=== PATIENT | male | born 1980 | race Caucasian/White ===

== ENCOUNTER 2017-03-08 10:38 | Emergency (ER) | payer MEDICAID, OTHER ==
[~2017-03-08] VITALS: Ht 167.6 cm; Wt 133.4 kg
[~2017-03-08 10:38] MED LIST: IBUP-1542 PO
[2017-03-08 10:41] VITALS: Ht 167.6 cm; Wt 133.4 kg
[2017-03-08] MEDS ORDERED: IBUPROFEN 800 MG TAB PO ONE (11:00)
--- NOTE | 2017-03-08 11:39 | RADRPT ---
PROCEDURE: XR Chest. CLINICAL INDICATION: Chest pain TECHNIQUE: Single portable view of the chest was obtained. COMPARISON: None. FINDINGS: Cardiac/vascular structures: Normal cardiomediastinal silhouette. Pulmonary: Lungs are clear. No pleural effusion. No evidence of pneumothorax. Osseous structures: Normal Soft tissues: Normal IMPRESSION: No acute cardiopulmonary disease. RPTAT:AAJJ Physician Mp Date Time Electronically viewed and signed by Esme Peñaloza Physician on 03/08/2017 11:39 /
[2017-03-08] MEDS ORDERED: IBUP-1542 PO (12:21)
--- NOTE | 2017-03-08 12:25 | ERD ---
ER Documentation Chief Complaint Chief Complaint Complains of midsternal chest pain x 3 days HPI Patient is a 36-year-old male with no medical problems who presents with chest pain. The symptoms started 3 days ago. He has pain with movement. The pain radiates to his back. It comes and goes. It lasts hours at a time. He tried Advil today. He does not currently have a primary doctor. Upon review of old medical records this is the patient's fourth visit to the ER since 2014. ROS All systems reviewed and are negative except as per history of present illness. Medications Home Meds Active Scripts Ibuprofen* (Motrin*) 600 Mg Tab, 600 MG PO Q6H Y for PAIN AND OR ELEVATED TEMP, #30 TAB Prov:MEGHAN BOCANEGRA MD 03/08/17 Discontinued Scripts Ibuprofen* (Ibuprofen*) 600 Mg Tablet, 600 MG PO Q8 for PAIN AND/OR INFLAMMATION , #30 TAB Prov:NEAL REMY MD 11/17/15 Allergies Allergies: Coded Allergies: No Known Allergy (Unverified , 07/16/14) PMhx/Soc Medical and Surgical Hx: pt denies Medical Hx History of Surgery: No Anesthesia Reaction: No Hx Neurological Disorder: No Hx Respiratory Disorders: No Hx Cardiac Disorders: No Hx Psychiatric Problems: No Hx Miscellaneous Medical Probl: No Hx Alcohol Use: No Hx Substance Use: No Hx Tobacco Use: No Smoking Status: Never smoker FmHx Family History: No coronary disease Physical Exam Vitals Vital Signs Date Time Temp Pulse Resp B/P Pulse Ox O2 Delivery O2 Flow Rate FiO2 03/08/17 12:37 98.5 71 18 131/68 99 Room Air 03/08/17 10:41 98.6 88 20 140/81 97 Physical Exam Const: No acute distress Head: Atraumatic Eyes: Normal Conjunctiva ENT: Normal External Ears, Nose and Mouth. Neck: Full range of motion..~ No meningismus. Resp: Clear to auscultation bilaterally Cardio: Regular rate and rhythm, no murmurs, chest wall pain with palpation Abd: Soft, non tender, non distended. Normal bowel sounds Skin: No petechiae or rashes Back: No midline or flank tenderness Ext: No cyanosis, or edema Neur: Awake and alert Psych: Normal Mood and Affect Results 24 hrs Current Medications Medications (Trade) Dose Ordered Sig/Vahid Route PRN Reason Start Time Stop Time Status Last Admin Dose Admin Ibuprofen (Motrin) 800 mg ONCE ONCE PO 03/08/17 11:00 03/08/17 11:01 DC 03/08/17 11:08 Procedures/MDM EKG read by me: Rate/Rhythm: Regular rate and rhythm at a rate of 82 Intervals: Normal Impression: No evidence of ischemia or arrhythmia Chest x-ray negative per radiology. Patient is a 36-year-old male who presents with chest pain. He has no risk factors for acute coronary syndrome. Chest x-ray and EKG are normal. I doubt acute coronary syndrome, pneumonia, pneumothorax, pulmonary embolism, or aortic dissection. I believe outpatient management is appropriate and the patient will be given ibuprofen for pain. However I do believe the patient will require close follow-up with the local clinics within 24-48 hours for reevaluation as he does not currently have a primary doctor. Departure Diagnosis: Primary Impression: Chest pain Chest pain type: unspecified Qualified Code: R07.9 - Chest pain, unspecified type Condition: Fair Patient Instructions: Chest Pain, Uncertain Cause Referrals: [facility] YOU HAVE RECEIVED A MEDICAL SCREENING EXAM AND THE RESULTS INDICATE THAT YOU DO NOT HAVE A CONDITION THAT REQUIRES URGENT TREATMENT IN THE EMERGENCY DEPARTMENT. FURTHER EVALUATION AND TREATMENT OF YOUR CONDITION CAN WAIT UNTIL YOU ARE SEEN IN YOUR DOCTORS OFFICE WITHIN THE NEXT 1-2 DAYS. IT IS YOUR RESPONSIBILITY TO MAKE AN APPOINTMENT FOR FOLOW-UP CARE. IF YOU HAVE A PRIMARY DOCTOR --you should call your primary doctor and schedule an appointment IF YOU DO NOT HAVE A PRIMARY DOCTOR YOU CAN CALL OUR PHYSICIAN REFERRAL HOTLINE AT IF YOU CAN NOT AFFORD TO SEE A PHYSICIAN YOU CAN CHOSE FROM THE FOLLOWING [facility] [address] [facility]. [facility] [address]) [facility] [facility] [address] [facility] [facility] [address] [facility]. [facility] [address] [facility]. [facility]. [address] Additional Instructions: Call your primary care doctor TOMORROW for an appointment during the next 1-2 days.See the doctor sooner or return here if your condition worsens before your appointment time. MEGHAN BOCANEGRA MD Mar 08, 2017 12:25
[2017-03-08 12:37] VITALS: BP 131/68; PULSE 71; RESP 18; TEMP 98.5
== END 2017-03-08 12:38 | disposition home or self-care (01) ==
LOC: E/R 10:38
DX: R07.9 Chest pain, unspecified (principal); R40.2252 Coma scale, best verbal response, oriented, at arrival to emergency department; R40.2142 Coma scale, eyes open, spontaneous, at arrival to emergency department; R40.2362 Coma scale, best motor response, obeys commands, at arrival to emergency department
CPT/HCPCS: 71010; Z7502; Z7610; 93005

== ENCOUNTER 2018-02-05 17:23 | Emergency (ER) | END 2018-02-05 20:28 | disposition home or self-care (01) ==

== ENCOUNTER 2018-12-12 08:44 | Emergency (ER) | payer MEDICAID ==
[~2018-12-12] VITALS: Ht 162.6 cm; Wt 90.0 kg
[~2018-12-12 08:44] MED LIST changes: +CARB15DR50 LEFT EAR; +CYCL10TA7 PO; +NAPR-985 PO
[2018-12-12 08:46] VITALS: BP 140/89; PULSE 89; RESP 18; Ht 162.6 cm; Wt 90.0 kg
[2018-12-12] MEDS ORDERED: KETOROLAC 30 MG INJ IM STA (09:05)
[2018-12-12] MEDS ORDERED: CYCLOBENZAPRINE 10 MG TAB PO ONE (09:30)
== END 2018-12-12 10:14 | disposition home or self-care (01) ==
LOC: FTE 08:44
DX: M54.41 Lumbago with sciatica, right side (principal); M62.830 Muscle spasm of back
CPT/HCPCS: 72100; 96372; J1885; Z7502; Z7610